=== PATIENT | male | born 1990 | race Caucasian/White ===

== ENCOUNTER 2016-05-06 15:56 | Emergency (ER) | payer BC ==
[~2016-05-06] VITALS: Ht 172.7 cm; Wt 79.5 kg
[2016-05-06 16:00] VITALS: TEMP 94.4
[2016-05-06 16:30] LABS: BASO # 0.1 (0.0-0.2); BASO % 1.3 % (0.0-2.0); EOS # 0.5 (0.0-0.7); EOS % 8.6 % (0-4.0); GRAN # 2.1 (1.4-6.5); GRAN % 37.8 % (42.2-75.2); HEMATOCRIT 43.1 % (42.0-52.0); HEMOGLOBIN 14.9 g/dl (13.5-18.0); LYMPH # 2.3 (1.2-3.4); LYMPH % 42.9 % (20.0-51.0); MEAN CELL VOLUME 84 fl (80.0-100.0); MEAN CORPUSCULAR HEMOGLOBIN 29 pg (27.0-31.0); MEAN CORPUSCULAR HGB CONC 35 g/dl (33.0-37.0); MEAN PLATELET VOLUME 9.6 fl (7.4-10.4); MONO # 0.5 (0.1-0.6); MONO % 9.2 % (1.7-9.3); PLATELET COUNT 241 K/mm3 (130-400); RED BLOOD COUNT 5.11 M/mm3 (4.20-5.60); REDCELL DISTRIBUTION WIDTH-CV 13.5 % (11.5-14.5); WHITE BLOOD COUNT 5.5 K/mm3 (4.8-10.8)
[2016-05-06] MEDS ORDERED: VYVANSE60 MG PO (16:30)
[2016-05-06] MEDS ORDERED: ADDERALL10 MG PO (16:31)
[2016-05-06 16:36] LABS: PH 6 (5-8); SQUAMOUS EPITHELIAL None Seen /hpf; URINE APPEARANCE Clear; URINE BACTERIA None Seen /hpf; URINE BILIRUBIN Negative (NEGATIVE); URINE BLOOD 1+ (NEGATIVE); URINE COLOR Yellow; URINE GLUCOSE Negative (NEGATIVE); URINE KETONE Negative (NEGATIVE); URINE RBC 20-50 /hpf; URINE UROBILINOGEN Negative (NEGATIVE)
[2016-05-06 16:38] LABS: CALCIUM 9.6 mg/dL (8.4-10.2); CREATININE, serum 1.07 mg/dL (0.66-1.25); POTASSIUM 4.1 mmol/L (3.4-5.0)
[2016-05-06] MEDS ORDERED: NORCO 325 MG-51 TAB PO (17:23)
[2016-05-06] MEDS ORDERED: ZOFRAN 4MG T4 MG/TAB PO (17:23)
[2016-05-06 18:05] VITALS: BP 137/78; PULSE 63
== END 2016-05-06 18:06 | disposition home or self-care (01) ==
LOC: COL.ER 15:56
PROVIDERS: Emergency Medicine
DX: R10.32 Left lower quadrant pain (principal); N13.2 Hydronephrosis with renal and ureteral calculous obstruction
CPT/HCPCS: J1170; J1885; J2405; J7030; Q9967